=== PATIENT | female | born 1935 | race Caucasian/White ===

== ENCOUNTER 2022-05-12 20:32 | Outpatient (CLI) | payer MEDICARE, BC, SELFPAY | END 2022-05-12 20:33 | disposition home or self-care (01) | LOC: AMB 05-13 02:25 | PROVIDERS: PCP Family Medicine; Visit Provider Family Medicine | DX: R53.1 Weakness (principal) | CPT/HCPCS: A0998 ==

== ENCOUNTER 2022-11-11 15:02 | Outpatient (CLI) | payer MEDICARE, BC, SELFPAY | END 2022-11-11 15:03 | disposition home or self-care (01) | LOC: AMB 11-12 10:02 | PROVIDERS: PCP Family Medicine; Visit Provider Internal Medicine | DX: S99.912A Unspecified injury of left ankle, initial encounter (principal); W01.0XXA Fall on same level from slipping, tripping and stumbling without subsequent striking against object, initial encounter; Y92.096 Garden or yard of other non-institutional residence as the place of occurrence of the external cause | CPT/HCPCS: A0425; A0429 ==

== ENCOUNTER 2022-12-16 14:56 | Outpatient (CLI) | payer MEDICARE, BC, SELFPAY | END 2022-12-16 14:57 | disposition home or self-care (01) | LOC: LONREF 14:56 | PROVIDERS: PCP Family Medicine; Visit Provider Family Medicine | DX: L03.116 Cellulitis of left lower limb (principal); S81.802A Unspecified open wound, left lower leg, initial encounter | CPT/HCPCS: 87070; 87186 ==

== ENCOUNTER 2022-12-21 08:29 | Outpatient (CLI) | payer MEDICARE, BC, SELFPAY | END 2022-12-21 08:30 | disposition home or self-care (01) | LOC: WOUND 08:32 | PROVIDERS: PCP Family Medicine; Visit Provider Nurse Practitioner Family | DX: S81.002A Unspecified open wound, left knee, initial encounter (principal); S81.801A Unspecified open wound, right lower leg, initial encounter; W01.0XXA Fall on same level from slipping, tripping and stumbling without subsequent striking against object, initial encounter; I89.0 Lymphedema, not elsewhere classified; I87.2 Venous insufficiency (chronic) (peripheral) | CPT/HCPCS: 11043; 11046; 99213 ==

== ENCOUNTER 2022-12-28 08:51 | Outpatient (CLI) | payer MEDICARE, BC, SELFPAY | END 2022-12-28 08:52 | disposition home or self-care (01) | LOC: WOUND 08:51 | PROVIDERS: PCP Family Medicine; Visit Provider Nurse Practitioner Family | DX: S81.002A Unspecified open wound, left knee, initial encounter (principal); L60.3 Nail dystrophy; B35.1 Tinea unguium | CPT/HCPCS: 11042; 11045; 11721 ==

== ENCOUNTER 2023-01-07 13:47 | Outpatient (CLI) | payer MEDICARE, BC, SELFPAY | END 2023-01-07 13:48 | disposition home or self-care (01) | LOC: WOUND 13:47 | PROVIDERS: PCP Family Medicine; Visit Provider Nurse Practitioner Family | DX: S81.002A Unspecified open wound, left knee, initial encounter (principal); S81.801A Unspecified open wound, right lower leg, initial encounter; I89.0 Lymphedema, not elsewhere classified; I87.2 Venous insufficiency (chronic) (peripheral) | CPT/HCPCS: 11042 ==

== ENCOUNTER 2023-01-14 13:42 | Outpatient (CLI) | payer MEDICARE, BC, SELFPAY | END 2023-01-14 13:43 | disposition home or self-care (01) | LOC: WOUND 13:42 | PROVIDERS: PCP Family Medicine; Visit Provider Nurse Practitioner Family | DX: I89.0 Lymphedema, not elsewhere classified (principal); I87.2 Venous insufficiency (chronic) (peripheral); L97.828 Non-pressure chronic ulcer of other part of left lower leg with other specified severity; L97.818 Non-pressure chronic ulcer of other part of right lower leg with other specified severity | CPT/HCPCS: 11042; 11043; 87070 ==

== ENCOUNTER 2023-01-21 13:44 | Outpatient (CLI) | payer MEDICARE, BC, SELFPAY | END 2023-01-21 13:45 | disposition home or self-care (01) | LOC: WOUND 13:44 | PROVIDERS: PCP Family Medicine; Visit Provider Nurse Practitioner Family | DX: I89.0 Lymphedema, not elsewhere classified (principal); L97.828 Non-pressure chronic ulcer of other part of left lower leg with other specified severity; L97.818 Non-pressure chronic ulcer of other part of right lower leg with other specified severity | CPT/HCPCS: 11042 ==

== ENCOUNTER 2023-01-28 13:46 | Outpatient (CLI) | payer MEDICARE, BC, SELFPAY | END 2023-01-28 13:47 | disposition home or self-care (01) | LOC: WOUND 13:46 | PROVIDERS: PCP Family Medicine; Visit Provider Nurse Practitioner Family | DX: I87.313 Chronic venous hypertension (idiopathic) with ulcer of bilateral lower extremity (principal); I89.0 Lymphedema, not elsewhere classified; L97.818 Non-pressure chronic ulcer of other part of right lower leg with other specified severity; L97.828 Non-pressure chronic ulcer of other part of left lower leg with other specified severity; I87.2 Venous insufficiency (chronic) (peripheral) | CPT/HCPCS: 11042; 15271 ==

== ENCOUNTER 2023-02-04 13:21 | Outpatient (CLI) | payer MEDICARE, BC, SELFPAY | END 2023-02-04 13:22 | disposition home or self-care (01) | LOC: WOUND 13:21 | PROVIDERS: PCP Family Medicine; Visit Provider Nurse Practitioner Family | DX: I87.313 Chronic venous hypertension (idiopathic) with ulcer of bilateral lower extremity (principal); I89.0 Lymphedema, not elsewhere classified; L97.828 Non-pressure chronic ulcer of other part of left lower leg with other specified severity; L97.818 Non-pressure chronic ulcer of other part of right lower leg with other specified severity | CPT/HCPCS: 15271; Q4158 ==

== ENCOUNTER 2023-02-11 14:48 | Outpatient (CLI) | payer MEDICARE, BC, SELFPAY | END 2023-02-11 14:49 | disposition home or self-care (01) | LOC: WOUND 14:48 | PROVIDERS: PCP Family Medicine; Visit Provider Nurse Practitioner Family | DX: I89.0 Lymphedema, not elsewhere classified (principal); I87.2 Venous insufficiency (chronic) (peripheral); L97.828 Non-pressure chronic ulcer of other part of left lower leg with other specified severity | CPT/HCPCS: 15271; Q4158 ==

== ENCOUNTER 2023-02-18 13:27 | Outpatient (CLI) | payer MEDICARE, BC, SELFPAY | END 2023-02-18 13:28 | disposition home or self-care (01) | LOC: WOUND 13:27 | PROVIDERS: PCP Family Medicine; Visit Provider Nurse Practitioner Family | DX: I89.0 Lymphedema, not elsewhere classified (principal); I87.2 Venous insufficiency (chronic) (peripheral); L97.828 Non-pressure chronic ulcer of other part of left lower leg with other specified severity | CPT/HCPCS: 15271; Q4121 ==

== ENCOUNTER 2023-02-25 10:08 | Outpatient (CLI) | payer MEDICARE, BC, SELFPAY | END 2023-02-25 10:09 | disposition home or self-care (01) | LOC: WOUND 10:08 | PROVIDERS: PCP Family Medicine; Visit Provider Nurse Practitioner Family | DX: I89.0 Lymphedema, not elsewhere classified (principal); L97.828 Non-pressure chronic ulcer of other part of left lower leg with other specified severity; S81.812A Laceration without foreign body, left lower leg, initial encounter; W55.03XA Scratched by cat, initial encounter | CPT/HCPCS: 15271; Q4158 ==

== ENCOUNTER 2023-03-04 10:28 | Outpatient (CLI) | payer MEDICARE, BC, SELFPAY | END 2023-03-04 10:29 | disposition home or self-care (01) | LOC: WOUND 10:29 | PROVIDERS: PCP Family Medicine; Visit Provider Nurse Practitioner Family | DX: I89.0 Lymphedema, not elsewhere classified (principal); I87.2 Venous insufficiency (chronic) (peripheral); L97.828 Non-pressure chronic ulcer of other part of left lower leg with other specified severity; S81.812A Laceration without foreign body, left lower leg, initial encounter | CPT/HCPCS: 99213 ==

== ENCOUNTER 2023-03-11 09:43 | Outpatient (CLI) | payer MEDICARE, BC, SELFPAY | END 2023-03-11 09:44 | disposition home or self-care (01) | LOC: WOUND 09:43 | PROVIDERS: PCP Family Medicine; Visit Provider Family Medicine | DX: I89.0 Lymphedema, not elsewhere classified (principal); I87.2 Venous insufficiency (chronic) (peripheral); S81.812A Laceration without foreign body, left lower leg, initial encounter | CPT/HCPCS: 11042; 97597 ==

== ENCOUNTER 2023-03-18 10:27 | Outpatient (CLI) | payer MEDICARE, BC, SELFPAY | END 2023-03-18 10:28 | disposition home or self-care (01) | LOC: WOUND 10:27 | PROVIDERS: PCP Family Medicine; Visit Provider Nurse Practitioner Family | DX: I89.0 Lymphedema, not elsewhere classified (principal); I87.2 Venous insufficiency (chronic) (peripheral); S81.812A Laceration without foreign body, left lower leg, initial encounter | CPT/HCPCS: 99212 ==

== ENCOUNTER 2024-04-06 12:57 | Outpatient (CLI) | payer MEDICARE, BC, SELFPAY | END 2024-04-06 12:58 | disposition home or self-care (01) | LOC: AMB 04-09 03:15 | PROVIDERS: PCP Family Medicine; Visit Provider Student in an Organized Health Care Education/Training Program | DX: R53.1 Weakness (principal) | CPT/HCPCS: A0998 ==

== ENCOUNTER 2024-04-20 18:11 | Outpatient (CLI) | payer MEDICARE, BC, SELFPAY | END 2024-04-20 18:12 | disposition home or self-care (01) | PROVIDERS: PCP Family Medicine; Visit Provider Family Medicine | DX: R53.1 Weakness (principal) | CPT/HCPCS: A0998 ==